=== PATIENT | male | born 1995 ===

== ENCOUNTER 2018-03-24 00:05 | Emergency (ER) | payer SELFPAY ==
[2018-03-24] MEDS ORDERED: Sodium Chloride 0.9% 2,000 ML IV STA (00:32)
--- NOTE | 2018-03-24 00:35 | ED PDOC ---
HPI: General Adult Time Seen by Provider: 03/24/18 00:19 Chief Complaint (Nursing): Abdominal Pain Chief Complaint (Provider): VOMITING/DIARRHEA History Per: Patient (22 Y/O MALE HERE FOR EVALUATION OF VOMITING/DIARRHEA MULTIPLE EPISODES AT 7PM EARLIER LAST NIGHT. NOTES 12 EPISODES OF DIARRHEA. STATES HE HAS HAD PERIUMBILICAL) Past Medical History Reviewed: Historical Data, Nursing Documentation, Vital Signs Vital Signs: Last Vital Signs Temp 97.6 F 03/24/18 00:10 Pulse 122 H 03/24/18 00:10 Resp 33 H 03/24/18 00:10 BP 117/81 03/24/18 00:10 Pulse Ox 100 03/24/18 00:10 - Family History Family History: States: No Known Family Hx - Home Medications Home Medications: Ambulatory Orders Medication Instructions Recorded Ibuprofen [Motrin] 600 mg PO Q8 PRN #21 tab 03/24/18 Ranitidine HCl [Zantac 75] 75 mg PO BID #10 tablet 03/24/18 - Allergies Allergies/Adverse Reactions: Allergies Allergy/AdvReac Type Severity Reaction Status Date / Time acetaminophen [From Tylenol] Allergy RASH Verified 03/24/18 04:10 Review of Systems ROS Statement: Except As Marked, All Systems Reviewed And Found Negative Gastrointestinal: Positive for: Vomiting, Diarrhea Physical Exam - Reviewed Nursing Documentation Reviewed: Yes Vital Signs Reviewed: Yes - Physical Exam Appears: Positive for: Well, Non-toxic, No Acute Distress Head Exam: Positive for: ATRAUMATIC, NORMAL INSPECTION, NORMOCEPHALIC Skin: Positive for: Normal Color, Warm, DRY Eye Exam: Positive for: EOMI, Normal appearance, PERRL ENT: Positive for: Normal ENT Inspection Neck: Positive for: Normal, Painless ROM Cardiovascular/Chest: Positive for: Regular Rate, Rhythm Respiratory: Positive for: CNT, Normal Breath Sounds Gastrointestinal/Abdominal: Positive for: Normal Exam, Soft, Tenderness (EPIGASTRIC TENDERNESS) Back: Positive for: Normal Inspection Extremity: Positive for: Normal ROM Neurologic/Psych: Positive for: Alert, Oriented - Laboratory Results Result Diagrams: 03/24/18 00:40 03/24/18 00:40 - ECG O2 Sat by Pulse Oximetry: 100 - Progress ED Course And Treament: NS 1 LITER WIDE OPEN X 2 LITERS PEPCID 20 MG IV X 1 DOSE ZOFRAN 4 MG IV X 1 DOSE RE-EVALUATED AND NOTED TO HAVE PERSISTENT RIGHT SIDED ABDOMINAL PAIN REPEAT HEART RATE 132. CT ABD/PELVIS: WNL REPEAT TEMP 101.3 REPEAT PULSE 112 MOTRIN 800MG X 1 DOSE GIVEN Disposition - Clinical Impression Clinical Impression: Gastroenteritis - Patient ED Disposition Is Patient to be Admitted: No - Disposition Referrals: [facility] [Outside] Disposition: Routine/Home Disposition Time: 05:34 Condition: FAIR Prescriptions: Ibuprofen [Motrin] 600 mg PO Q8 PRN #21 tab PRN Reason: Fever >100.4 F Ranitidine HCl [Zantac 75] 75 mg PO BID #10 tablet Instructions: Gastroenteritis (ED) Forms: [facility] ED School/Work Excuse
[2018-03-24 00:56] LABS: BASO % 0.1 % (0.0-2.0); EOS # 0.1 K/uL (0.0-0.7); EOS % 0.4 % (0.0-4.0); LYMPH # 1.5 K/uL (1.0-4.3); LYMPH % 10.8 % (20.0-40.0); MEAN CELL VOLUME 88.4 fl (80.0-94.0); MEAN CORPUSCULAR HEMOGLOBIN 30.6 pg (27.0-31.0); MEAN CORPUSCULAR HGB CONC 34.7 g/dL (33.0-37.0); MEAN PLATELET VOLUME 7.9 fl (7.2-11.7); MONO # 0.4 K/uL (0.0-0.8); MONO % 2.7 % (0.0-10.0); NEUT # 11.8 K/uL (1.8-7.0); NRBC % 0.2 % (0.0-0.0); RBC 6.2 Mil/uL (4.40-5.90); RED CELL DISTRIBUTION WIDTH 12.9 % (11.5-14.5); WHITE BLOOD COUNT 13.7 K/uL (4.8-10.8)
[2018-03-24 01:03] LABS: PROTHROMBIN TIME 11.4 Seconds (9.8-13.1)
[2018-03-24 01:06] LABS: PARTIAL THROMBOPLASTIN TIME 33.4 Seconds (25.6-37.1)
[2018-03-24 01:13] LABS: ALBUMIN 5.6 g/dL (3.5-5.0); ALT/SGPT 54 U/L (21-72); AST/SGOT 48 U/L (17-59); BLOOD UREA NITROGEN 15 mg/dl (9-20); CALCIUM 11.2 mg/dL (8.4-10.2); GFR NON-AFRICAN AMERICAN > 60
[2018-03-24] MEDS ORDERED: Sodium Chloride 0.9% 1,000 ML IV STA (01:34)
[2018-03-24] MEDS ORDERED: Iohexol 240 (50 ml) PO ONE (01:35)
[2018-03-24 01:40] VITALS: RESP 18
[2018-03-24] MEDS ORDERED: Iohexol 240 (50 ml) ONE (01:42)
[2018-03-24] MEDS ORDERED: Iohexol 300 100 ML IJ ONE (03:35)
[2018-03-24] MEDS ORDERED: Sodium Chloride 0.9% 50 ML IV ONE (03:35)
[2018-03-24 05:09] VITALS: O2SAT 100
[2018-03-24 06:25] VITALS: BP 97/63; PULSE 105; TEMP 99.4
--- NOTE | 2018-03-24 08:37 | CARD ---
APPROVED REPORT Date of service: 03/24/2018 EKG Measurement Heart [id number] <Conclusion> Sinus tachycardia left posterior fascicular block poor R wave progression low voltage Abnormal ECG
--- NOTE | 2018-03-24 10:30 | CT ---
Date of service: 03/24/2018 PROCEDURE: CT Abdomen and Pelvis with contrast HISTORY: R/O APPENDICITIS COMPARISON: None. TECHNIQUE: Contrast dose: 90 mL Omnipaque 300 Radiation dose: Total exam DLP = 287 mGy-cm. This CT exam was performed using one or more of the following dose reduction techniques: Automated exposure control, adjustment of the mA and/or kV according to patient size, and/or use of iterative reconstruction technique. FINDINGS: LOWER THORAX: Unremarkable. LIVER: Unremarkable. No gross lesion or ductal dilatation. GALLBLADDER AND BILE DUCTS: Unremarkable. PANCREAS: Unremarkable. No gross lesion or ductal dilatation. SPLEEN: Unremarkable. ADRENALS: Unremarkable. No mass. KIDNEYS AND URETERS: Unremarkable. No hydronephrosis. No solid mass. VASCULATURE: Unremarkable. No aortic aneurysm. BOWEL: Unremarkable. No obstruction. No gross mural thickening. APPENDIX: Normal appendix. PERITONEUM: Unremarkable. No free fluid. No free air. LYMPH NODES: Unremarkable. No enlarged lymph nodes. BLADDER: Unremarkable. REPRODUCTIVE: Unremarkable. BONES: No acute fracture. OTHER FINDINGS: None. IMPRESSION: No acute abdominal pelvic pathology.
== END 2018-03-24 06:25 | disposition home or self-care (01) ==
LOC: H.ER 00:05
DX: K52.9 Noninfective gastroenteritis and colitis, unspecified (principal)
CPT/HCPCS: 74177; 80053; 82948; 83735; 85025; 85610; 85730; 93005; 96361; 96374; 96375; 99285; J2405; J7030; Q9966; Q9967